=== PATIENT | male | born 1960 | race Caucasian/White ===

== ENCOUNTER 2023-02-05 12:35 | Emergency (ER) | payer MEDICAID, OTHER ==
[~2023-02-05] VITALS: Ht 175.3 cm; Wt 85.0 kg
[2023-02-05 13:31] VITALS: BP 167/97; PULSE 84; RESP 18; TEMP 98.1; O2SAT 96
[2023-02-05 14:58] LABS: Albumin 3.8 g/dL (3.4-5.0); Calcium 8.9 mg/dL (8.5-10.1); Potassium 3.7 mmol/L (3.5-5.1)
[2023-02-05 15:08] LABS: BUN/Creatinine Ratio 16.9 (10.0-20.0); Basophils # (auto) 0 10 ^3/uL (0-0.2); Basophils % (auto) 0.3 % (0.0-2.0); Eosinophils # (auto) 0.1 10 ^3/uL (0-0.8); Eosinophils % (auto) 1.1 % (0.0-7.0); Hematocrit 48.6 % (41.0-53.0); Hemoglobin 16.9 g/dL (13.5-17.5); Lymphocytes # (auto) 1.7 10 ^3/uL (0.4-5.4); Lymphocytes % (auto) 16.9 % (10.0-50.0); Mean Corpuscular Hemoglobin 29.9 pg (28.0-32.0); Mean Corpuscular Hgb Conc. 34.9 g/dL (32.0-36.0); Mean Corpuscular Volume 85.8 fL (80.0-100.0); Monocytes # (auto) 0.7 10 ^3/uL (0-1.3); Monocytes % (auto) 6.8 % (0.0-12.0); Neutrophils # (auto) 7.3 10 ^3/uL (1.6-8.6); Neutrophils % (auto) 74.9 % (37.0-80.0); Nucleated Red Blood Cells % 0.1 %; Red Blood Cells 5.67 10^6/uL (4.5-5.90); Red Cell Distribution Width 13.3 % (11.8-14.3); Total Protein 7.8 g/dL (6.4-8.2); Uric Acid 5.7 mg/dL (3.5-7.2); White Blood Cell 9.8 10^3/uL (4.4-10.8)
[2023-02-05] MEDS ORDERED: CLIN-203 PO (15:28)
[2023-02-05] MEDS ORDERED: CLINDAMYCIN HCL 150 MG CAP PO ONE (15:30)
== END 2023-02-05 15:57 | disposition home or self-care (01) ==
LOC: ER 12:35
DX: S60.561A Insect bite (nonvenomous) of right hand, initial encounter (principal); M79.642 Pain in left hand; L03.113 Cellulitis of right upper limb; W57.XXXA Bitten or stung by nonvenomous insect and other nonvenomous arthropods, initial encounter; Y93.89 Activity, other specified; Y92.89 Other specified places as the place of occurrence of the external cause; Y99.8 Other external cause status
CPT/HCPCS: 36415; 73130; 80053; 84550; 85025